=== PATIENT | female | born 1935 | race Caucasian/White ===

== ENCOUNTER 2017-03-23 11:01 | Observation (INO) ==
[2017-03-23] MEDS ORDERED: *HR* Morphine 2 MG/ML SYRINGE SQ ONE (11:26)
[2017-03-23] MEDS ORDERED: Ondansetron ODT 4 MG TAB.RAPDIS SL ONE (11:26)
--- NOTE | 2017-03-23 12:28 | Emergency Department Note ---
Disposition Clinical Impression: Left hip pain Disposition: Still a Patient Condition: Undetermined Extremity Problem HPI - General Chief complaint: ED Extremity Problem,Nontraumatic Stated complaint: Left hip/GROIN PAIN Time Seen by Provider: 03/23/17 11:25 Source: patient, family Mode of arrival: private vehicle Limitations: no limitations Nursing Notes Reviewed: Yes Vital Signs Reviewed: Yes - History of Present Illness Pt Subjective Complaint: joint paint Onset (ago): week(s) Consistency: Worsening Injury Location: left Pain Scale: 10 ("if trying to walk") Quality: stabbing, sharp Improves with: immobilization, rest Worsens with: range of motion, weight bearing, walking Associated symptoms: Reports: denies other symptoms Context: other (Hx of right hip arthritis, s/p THR 10+years ago) - Related Data Previous Rx's Medication Instructions Recorded Sulfamethoxazole/Trimeth DS 1 each PO BID #14 tablet 11/11/16 [Bactrim DS] Allergies Allergy/AdvReac Type Severity Reaction Status Date / Time No Known Allergies Allergy Unverified 07/03/15 10:18 All systems ED: reviewed and negative except as stated. Constitutional: Denies: fever, chills, weakness Gastrointestinal: Denies: abdominal pain, nausea, vomiting Genitourinary: Denies: dysuria, frequency, hematuria Musculoskeletal: Reports: as per HPI, back pain ("Chronic" - no worse than usual ), arthralgia. Denies: neck pain, joint swelling Neurological: Denies: numbness, paresthesias Hematological/Lymphatic: Denies: easy bleeding, easy bruising Past Medical History - Past Medical History Attestation: Yes The following information was validated with the patient. Source: patient Medical history: Reports: arthritis, hyperlipidemia, hypertension, other Surgical history: Reports: hip replacement (right) Psychiatric history: Reports: no psych history - Social History Smoking Status: Never smoker Smokeless Tobacco Status: No Alcohol use: Reports: occasionally Drug use: Reports: none Physical Exam - General Limitations: no limitations General appearance: alert, in no apparent distress - Head Head exam: atraumatic, normocephalic, normal inspection - Eye Eye exam: Present: normal appearance, PERRL. Absent: scleral icterus, conjunctival injection, periorbital swelling - ENT ENT exam: mucous membranes moist - Neck Neck exam: Present: normal inspection - Chest Chest inspection: Present: normal inspection - Respiratory Respiratory exam: Absent: respiratory distress - Cardiovascular Cardiovascular exam: Present: regular rate - Extremities Exam Extremities exam: Present: normal inspection, normal capillary refill. Absent: pedal edema - Expanded Lower Extremity Exam Hip/Pelvis exam: Present: normal inspection, tenderness (left lateral hip and pelvis) Upper leg exam: Absent: tenderness Knee exam: Present: normal inspection, full ROM. Absent: tenderness Lower leg exam: Present: normal inspection. Absent: tenderness Ankle exam: Present: normal inspection, full ROM. Absent: tenderness, swelling Foot/toe exam: Present: normal inspection, full ROM. Absent: tenderness, swelling Neurovascular/Tendon exam: Present: normal fine/light touch. Absent: pulse deficit, motor deficit, sensory deficit, tendon deficit, foot drop Gait: not tested/not observed - Back Exam Back exam: Absent: tenderness - Neurological Exam Neurological exam: Present: alert, oriented X3, CN II-XII intact, normal gait - Psychiatric Psychiatric exam: Present: normal affect, normal mood - Skin Skin exam: Present: warm, dry, intact, normal color Course Course Narrative: Patient presents from home with her son for evaluation of left hip pain. She states that she has had pain in this area for several weeks, but this week it has gotten significantly worse. She has been "up and around more than usual lately." She denies trauma, fever, recent procedures or illnesses. She states that she had bad arthritis in the right hip and had to have THR about a decade ago. She knows that she has some arthritis in the left hip, but has not had severe pain like this before. She points to the left lateral hip and pelvis. The pain radiates around the hip into the groin, but not down the leg. She denies paraesthesias, but has had weakness in the leg. She appears comfortable until she tries to bear weight. Xray ordered. Xray shows no acute abnormality. Patient unable to bear weight without severe pain. Her son is adamant that she have a CT done. He feels that this imaging modality should have been utilized fisrt. This has been ordered. CT is limited because of demineralization. MRI valerio's by rad if patient unable to bear weight. This was discussed with the patient. Her son states that he needs to know what is wrong with his mom - why she can't walk - and he is only going to be here (in [place])for a short period of time. He strongly expresses that he would like for her to have the MRI done now. The was feeling a little better after the morphine, but still reluctant to bear weight. She is uncomfortable in the wheel chair but is unable to get up onto the tall exam table in fast track. Will move the patient to a medical bed for further evaluation and possible further advanced imaging. Case discussed with Dr. Gates. She will see the patient lynnette. She received two other patients at the same time. Vital Signs Temperature 97.9 F 03/23/17 11:10 Pulse Rate 64 03/23/17 11:10 Respiratory Rate 18 03/23/17 11:10 Blood Pressure 128/52 03/23/17 11:10 O2 Sat by Pulse Oximetry 96 03/23/17 11:10 Temperature 97.9 F 03/23/17 11:10 Pulse Rate 64 03/23/17 11:10 Respiratory Rate 18 03/23/17 11:10 Blood Pressure 128/52 03/23/17 11:10 O2 Sat by Pulse Oximetry 96 03/23/17 11:10 Oxygen Delivery Oxygen Delivery Room Air Extremity Problem, Nontraumati - Medical Records Medical records reviewed: Yes I reviewed the patient's medical records. - Radiology Data Radiology results reviewed: Yes I reviewed the patient's radiology results. Hip X-Ray 03/23/17 11:24 IMPRESSION: No acute osseous abnormality. Minimal degenerative changes of the left hip. Given the degree of osteopenia, nondisplaced fractures may be radiographically occult. If pain or concern for fracture persists, consider MR imaging. D/ / 03/23/2017 11:48:46 Olena Zarate MD / Zenobia Michael Interpreting Provider: Olena Zarate MD Hip CT 03/23/17 11:58 IMPRESSION: Within the limitations of the exam, no acute abnormalities are seen. If there is persistent clinical concern or difficulty weight-bearing MRI can be considered. Right hip prosthesis. No evidence for hardware complication. Degenerative changes to the left hip, both SI joints and to the visualized lower lumbar spine. Prior surgical intervention to the lower lumbar spine without evidence for hardware complication. Grade 1 anterolisthesis of L4 on L5 likely relating to the degenerative changes. Colonic diverticulosis without evidence for diverticulitis. D/ / 03/23/2017 12:39:58 Nicholas Choi MD / rissa Interpreting Provider: Nicholas Choi MD Attestation Statement - Attestation Attestation: I have personally performed a face to face evaluation on this patient. I have reviewed and agree with the care plan. History and Exam by me shows: Patient to ED with left hip pain. Patient has chronic back problems. She states she has had increasing pain in her hip and pelvis. She can no longer bear weight on the left leg. Patient was seen by PA and brought back for MRI. On examination the patient has no tenderness over the hip. She allows logrolling. The leg is neurovascularly intact. Plan. Concern this could become from her back. MR hip and lumbar spine. Patient is unable to walk. Will be admitted to medicine. Basic labs pending.
[2017-03-23 14:38] LABS: Basophils % 0.3 %; Eosinophils # 0.1 K/mcL (0.0-0.6); Eosinophils % 1.2 %; Hematocrit 40.8 % (35.3-44.9); Hemoglobin 13.7 g/dL (11.5-15.4); Immature Granulocytes % 0.1 % (0-4); Lymphocytes # 1.8 K/mcL (0.6-4.6); Lymphocytes % 26.3 %; Mean Corpuscular HGB Conc 33.6 g/dL (31.6-35.5); Mean Corpuscular Hemoglobin 32.2 pg (28.0-33.3); Mean Corpuscular Volume 95.8 fL (83.0-100.0); Mean Platelet Volume 11.9 fL (9.4-12.4); Monocytes # 0.6 K/mcL (0.0-1.3); Monocytes % 8.8 %; Neutrophils # 4.3 K/mcL (1.6-8.9); Platelet Count 121 K/mcL (140-400); Red Blood Count 4.26 M/mcL (3.82-4.97); Red Cell Distribution Width 12.3 % (11.5-14.5); Segmented Neutrophils % 63.3 %
[2017-03-23 14:47] LABS: Prothrombin Time 11.1 Seconds (9.4-12.1)
[2017-03-23 14:49] LABS: Calcium 9.1 mg/dL (8.6-10.8); Potassium 4.5 mEq/L (3.5-4.5)
[2017-03-23 14:50] LABS: Activated Partial Thrombo Time 29.4 Seconds (26.0-36.0)
[2017-03-23] MEDS ORDERED: Ondansetron ODT 4 MG TAB.RAPDIS SL PRN (16:16)
[2017-03-23] MEDS ORDERED: Naloxone 0.4 MG/ML INJ IVP PRN (16:16)
[2017-03-23] MEDS ORDERED: *HR* HYDROcodone/Acet 5/325 mg TABLET PO PRN ×2 (16:23→16:45)
--- NOTE | 2017-03-23 16:32 | Internal Med History&Physical ---
<Antonio Garcia - Last Filed: 03/23/17 16:57> Date of Encounter: 03/23/17 Time of Encounter: 15:00 Assessment and Plan (1) Left hip pain Current visit: Yes Status: Acute Acute left hip pain that patient states has been present for awhile but has worsened in the past two days. CT of the left hip today w/o contrast shows no acute abnormalities. If there is persistent clinical concern difficulty weightbearing, MRI can be considered. Right hip prosthesis. No evidence for hardware complication. Degenerative changes to the left hip, both SI joints into the visualized lower lumbar spine. Prior surgical intervention to the lower lumbar spine without evidence of hardware complication. Grade 1 anterolisthesis of L4 on L5 likely relating to degenerative changes. MRI of the left hip and lumbar spine ordered. Will continue pts. Will continue pts. Hydrocodone for moderate pain and add Dilaudid for severe pain. PT/OT consults ordered. Falls/safety precautions. Pt. is at moderate risk for further morbidity d/t current sx and hx of hip/spine pain. Observation. (2) GERD (gastroesophageal reflux disease) Current visit: Yes Status: Chronic Hx of chronic GERD. IVP Zofran Q6 PRN. Continue pts. Prilosec. Qualifiers: Esophagitis presence: esophagitis presence not specified Qualified Code(s) : K21.9 - Gastro-esophageal reflux disease without esophagitis (3) HTN (hypertension) Current visit: Yes Status: Chronic Hx of chronic HTN. Monitor pt. and VS. Continue patient's metoprolol, Imdur, and lisinopril. Qualifiers: Hypertension type: essential hypertension Qualified Code(s): I10 - Essential (primary) hypertension (4) HLD (hyperlipidemia) Current visit: Yes Status: Chronic Hx of chronic hyperlipidemia. Lipid panel in a.m. labs. Continue Lipitor. Qualifiers: Hyperlipidemia type: pure hypercholesterolemia Qualified Code(s): E78.00 - Pure hypercholesterolemia, unspecified; E78.0 - Pure hypercholesterolemia (5) Parkinsons disease Current visit: Yes Status: Chronic Hx of chronic Parkinson's disease. Continue patient's carbidopa/levodopa. (6) Arthritis Current visit: Yes Status: Chronic Hx of chronic arthritis. Hydrocodone for moderate pain and Dilaudid for severe pain. (7) DVT prophylaxis Current visit: Yes Status: Acute Bilateral SCDs on LEs for DVT prophylaxis. Pharmacologic DVT prophylaxis contraindicated due to possible surgical intervention for left hip. Will await MRI results. Internal Medicine - H&P: HPI Chief complaint: Left hip pain Admitted From: Emergency Dept Plans for Post Hospital Care: Home History of present illness: Ms. Lal is a 81 year old female with medical hx of arthritis, GERD, hyperlipidemia, hypertension, and Parkinson's disease presents to ED with chief complaint of pain in her left hip which she states has been occurring for a while but became worse in the past 2 days. She describes the pain as sharp and reports difficulty with ambulation. Patient also states she has chronic back pain. She reports she does not take NSAIDs due to renal function and takes acetaminophen instead. Patient also reports SOB but denies recent illness, fever, chills, nausea, vomiting, chest pain, palpitations, changes in vision, unusual bleeding, headache, abdominal pain, constipation, diarrhea, dizziness, lightheadedness, pre-syncope, or syncope. Past Med Surg Social Fam HX - Past Medical History Source: patient, old records reviewed Medical history: arthritis, GERD, hyperlipidemia, hypertension, other (Parkinson 's disease) Psychiatric history: no psych history - Past Surgical History Surgical History: coronary bypass (CABG) (Triple in 2012), hip replacement ( Right) - Social History Smoking Status: Former smoker Packs per day: 2-3 cigarettes daily - Reports quitting >20 years ago Smokeless Tobacco Status: No Alcohol use: occasionally Drug use: none Current living situation: Home, With Family Activity Level: Independent ambulation Recent Out of Country Travel Within the Last 8 Weeks: No Exposure or Possible Exposure to Illness During Travel: No - Family History Father Age at : 92 Cause of : Pancreatic cancer Hx Family Cancer: Yes (Pancreatic) Hx Family Endocrine Disorder: Yes (DM) Hx Family Musculoskeletal Disorders: Yes (Arthritis) Mother Race: Family Member Ethnicity: Non- Living Status: Age at : 85 Cause of : Hit by car Hx Family Cardiac Disorders: Yes (HTN) Hx Family Endocrine Disorder: Yes (DM) Brother Race: Family Member Ethnicity: Non- Twin of Family Member: Yes, Fraternal Hx Family Cardiac Disorders: Yes (CAD, Quad Bypass) Hx Family Cancer: Yes (Colon) Internal Medicine - H&P: Meds Aspirin Enteric Coated [Aspirin EC] 81 mg PO DAILY 11/21/17 [History] Atorvastatin Calcium [Lipitor] 20 mg PO HS 03/23/17 [History] Carbidopa/Levodopa 25/100 [Sinemet 25/100] 1 each PO TID 03/23/17 [History] Docusate [Colace] 100 mg PO DAILY PRN 03/23/17 [History] HYDROcodone/Acet 5/325 mg [[place] 5-325 mg] 1 tab PO BID PRN 03/23/17 [History] Isosorbide MONOnitrate (24 HR) [Imdur] 60 mg PO DAILY 03/23/17 [History] Lisinopril [Zestril] 5 mg PO DAILY 03/23/17 [History] Metoprolol Succinate 100 mg PO DAILY 03/23/17 [History] Multivitamin [One Daily Essential] 1 each PO DAILY 03/23/17 [History] Omeprazole [PriLOSEC] 20 mg PO DAILY 03/23/17 [History] 3 Allergy/AdvReac Type Severity Reaction Status Date / Time No Known Allergies Allergy Unverified 07/03/15 10:18 All Systems PM: A 10-system review of systems was performed and is negative for pertinent findings except as documented above in the HPI. - Constitutional Constitutional: no chills, no fever(s), no night sweats - EENT Eyes: no change in vision, no discharge, no pain, no photophobia Ears: no ear discharge, no ear pain, no tinnitus Nose, mouth and throat: no dysphagia, no nasal discharge, no neck pain, no sore throat - Breasts Breasts: as per HPI - Cardiovascular Cardiovascular ROS IM: as per HPI, dyspnea, dyspnea on exertion, no chest pain, no diaphoresis, no lightheadedness, no palpitations, no syncope - Respiratory Respiratory: as per HPI, dyspnea, dyspnea on exertion - Gastrointestinal Gastrointestinal: no abdominal pain, no diarrhea, no hematemesis, no hematochezia, no melena, no nausea, no vomiting - Genitourinary Genitourinary: no change in urinary stream, no dysuria, no flank pain, no hematuria Menstruation: as per HPI - Musculoskeletal Musculoskeletal ROS IM: no numbness, no tingling - Integumentary Integumentary IM: no rash, no unusual bruising - Neurological Neurological ROS: no confusion, no convulsions, no focal weakness, no numbness, no tingling, no tremor(s) - Psychiatric Psychiatric: as per HPI - Endocrine Endocrine IM: as per HPI - Hematologic/Lymphatic Hematologic/Lymphatic: no easy bruising - Allergic/Immunologic Allergic/Immunologic: as per HPI - Constitutional Vitals: Temp Pulse Resp BP Pulse Ox 97.7 F 55 18 120/58 94 03/23/17 15:37 03/23/17 15:37 03/23/17 15:37 03/23/17 15:37 03/23/17 15:37 General appearance: Present: cooperative, A&O X 3, pleasant, no acute distress, obese, answers questions appropriately - Head Head exam: Present: atraumatic, normal inspection, normocephalic - Eye Eye exam: Present: PERRL, conjuntiva pink, sclera anicteric Pupils: Present: PERRL - ENT ENT exam: Present: normal exam, normal external ear exam - Neck Neck exam general surgery: Present: normal inspection, supple, trachea midline. Absent: lymphadenopathy - Respiratory Respiratory exam: Present: CTAB. Absent: accessory muscle use, rales, rhonchi, wheezes - Cardiovascular Cardiovascular exam: Present: RRR, +S1, +S2. Absent: diastolic murmur, gallop, rubs, systolic murmur - GI/Abdominal GI/Abdominal exam: Present: normal bowel sounds, soft, no peritoneal signs. Absent: distended, tenderness - Rectal Rectal exam: Present: deferred - Additional comments: exam deferred. - Extremities Exam Extremities exam: Present: normal inspection, warm, radial pulses palpable and symmetrical. Absent: calf tenderness, cyanotic, pedal edema - Back Exam Back exam: Present: normal inspection - Neurological Exam Neurological exam: Present: CN II-XII intact, oriented X3, no focal deficits. Absent: pronater drift, facial droop, speech deficit - Psychiatric Psychiatric exam: Present: normal affect, normal mood - Skin Skin exam: Present: dry, intact Internal Med - H&P Results - Labs CBC & Chem 7: 03/23/17 14:31 03/23/17 14:31 - Diagnostic Studies Other Images Additional comments: Impressions Hip X-Ray 03/23/17 11:24 IMPRESSION: No acute osseous abnormality. Minimal degenerative changes of the left hip. Given the degree of osteopenia, nondisplaced fractures may be radiographically occult. If pain or concern for fracture persists, consider MR imaging. D/ / 03/23/2017 11:48:46 Olena Zarate MD / Zenobia Michael Interpreting Provider: Olena Zarate MD Hip CT 03/23/17 11:58 IMPRESSION: Within the limitations of the exam, no acute abnormalities are seen. If there is persistent clinical concern or difficulty weight-bearing MRI can be considered. Right hip prosthesis. No evidence for hardware complication. Degenerative changes to the left hip, both SI joints and to the visualized lower lumbar spine. Prior surgical intervention to the lower lumbar spine without evidence for hardware complication. Grade 1 anterolisthesis of L4 on L5 likely relating to the degenerative changes. Colonic diverticulosis without evidence for diverticulitis. D/ / 03/23/2017 12:39:58 Nicholas Choi MD / rissa Interpreting Provider: Nicholas Choi MD <Desmond Maynard P - Last Filed: 03/23/17 18:32> Date of Encounter: 03/23/17 Internal Medicine - H&P: HPI History of present illness: Ms. Lal is a 81 year old female All Systems PM: A 10-system review of systems was performed and is negative for pertinent findings except as documented above in the HPI. - Constitutional Vitals: Temp Pulse Resp BP Pulse Ox 97.7 F 55 18 120/58 94 03/23/17 15:37 03/23/17 15:37 03/23/17 15:37 03/23/17 15:37 03/23/17 15:37 Internal Med - H&P Results - Labs CBC & Chem 7: 03/23/17 14:31 03/23/17 14:31 - Attending Attestation I examined this patient and my medical decision-making was reviewed with the Resident Physician/CIRCUIT TESTER. I agree with the documented findings, disposition and treatment plan as described except to the extent set forth below. Patient seen and examined. Chart reviewed. 81/female Came in with the hip pain. CT scan is negative for any abnormality Patient has a worse pain of her life. Oral make medication apparently does not work in the emergency room. Intravenous pain medication has a better control. Plan: We will get MRI as scheduled. We will continue pain medication intravenously. We will call appropriate specialty depending on MRI results.
[2017-03-23] MEDS ORDERED: *HR* HYDROmorphone (PF) 1 MG/ML SYRINGE IVP PRN (16:43)
[2017-03-23] MEDS: Carbidopa/Levodopa 25/100 TABLET PO SCH (20:42)
[2017-03-24 04:35] LABS: Basophils % 0.5 %; Eosinophils # 0.1 K/mcL (0.0-0.6); Eosinophils % 2.1 %; Hematocrit 39.1 % (35.3-44.9); Hemoglobin 13.3 g/dL (11.5-15.4); Immature Granulocytes % 0.3 % (0-4); Lymphocytes # 2.1 K/mcL (0.6-4.6); Lymphocytes % 31.9 %; Mean Corpuscular Hemoglobin 32.7 pg (28.0-33.3); Mean Corpuscular Volume 96.1 fL (83.0-100.0); Mean Platelet Volume 11.9 fL (9.4-12.4); Monocytes # 0.7 K/mcL (0.0-1.3); Monocytes % 10.1 %; Neutrophils # 3.7 K/mcL (1.6-8.9); Platelet Count 116 K/mcL (140-400); Red Blood Count 4.07 M/mcL (3.82-4.97); Red Cell Distribution Width 12.4 % (11.5-14.5); Segmented Neutrophils % 55.1 %
[2017-03-24 04:49] LABS: Alanine Aminotransferase 9 Units/L (0-55); Albumin 3.1 g/dL (3.5-5.0); Albumin/Globulin Ratio 0.9 (1.1-2.2); Alkaline Phosphatase 72 Units/L (38-126); Aspartate Amino Transferase 16 Units/L (5-34); BUN/Creatinine Ratio 21 (6-26); Bilirubin,Total 0.6 mg/dL (0.2-1.2); Blood Urea Nitrogen 22 mg/dL (7-20); Calcium 8.8 mg/dL (8.6-10.8); Carbon Dioxide 25 mEq/L (19-29); Chloride 107 mEq/L (98-109); Chol/HDL Ratio 4.5 (0-4.9); Cholesterol 113 mg/dL (< 200); Globulin 3.3 g/dL (2.4-3.5); Glucose 104 mg/dL (70-99); HDL Cholesterol 25 mg/dL (40-59); LDL Cholesterol,Calculated 51 mg/dL (0-99); Osmolality,Calculated 292 (280-300); Potassium 4.3 mEq/L (3.5-4.5); Sodium 139 mEq/L (136-145); Total Protein 6.4 g/dL (6.0-8.3); Triglycerides 183 mg/dL (< 150); eGFR For African Americans > 60 (> 60); eGFR For Non-African Americans 51 (> 60)
[2017-03-24 04:53] LABS: Hemoglobin A1C 5.1 %
[2017-03-24] MEDS: Carbidopa/Levodopa 25/100 TABLET PO SCH ×2 (08:46→15:54)
[2017-03-24] MEDS ORDERED: Aspirin Enteric Coated 81 MG Tablet PO SCH (09:00)
[2017-03-24] MEDS ORDERED: Metoprolol XL (24 HR) Succ 50 MG TAB.ER.24H PO SCH (09:00)
[2017-03-24] MEDS ORDERED: Isosorbide MONOnitrate (24 HR) 60 MG TAB.ER.24H PO SCH (09:00)
[2017-03-24] MEDS ORDERED: Multivit/Ca/Min/Fe/FA 1 TAB TABLET PO SCH (09:00)
[2017-03-24 15:42] VITALS: BP 124/64
[2017-03-24] MEDS ORDERED: Acetaminophen 325 MG TABLET PO PRN (15:59)
--- NOTE | 2017-03-24 16:07 | Discharge Summary ---
Date of Encounter: 03/24/17 Time of Encounter: 09:45 - Discharge Diagnosis (1) Left hip pain Priority: Primary Status: Acute Comments: Acute left hip pain that patient states has been present for 2 years, but has worsened in the past two days. She denies change in routine, activity, or known injury. CT of the left hip today w/o contrast shows no acute abnormalities, right hip prosthesis is noted. Degenerative changes to left hip and both SI joints and to the visualized lower lumbar spine. Also noted was prior surgical intervention lower lumbar spine. Left hip x-ray was negative for any acute osseous abnormality, minimal degenerative changes were noted. Patient had an MRI of left hip without contrast. There is no acute osseous abnormality. Moderate left gluteal insertional tendinitis partial-thickness tearing. There is edema within the left gluteal compatible with reactive edema. There is mild left hip degenerative changes and a small left hip reactive effusion. Also noted is mild bilateral SI joint degenerative changes and colonic diverticulosis without diverticulitis. Patient was evaluated by physical therapy, as well as occupational therapy. They recommended patient stays on the first level of her home until she is safe with stair ambulation. They recommended 10 visits of PT with home health. Patient reports that when she walks with her walker, she does not have pain. She reports that she really has 2 walkers at home. Patient will need to follow-up with orthopedics outpatient after discharge. Pt states that she does not want to stay to see ortho for disc protrusions or for GM tear. She states that she wants to go home for Thanksgiving and is declining to stay. (2) GERD (gastroesophageal reflux disease) Priority: Secondary Status: Chronic Comments: Patient with history of GERD. Continue home medications. Qualifiers: Esophagitis presence: esophagitis presence not specified Qualified Code(s) : K21.9 - Gastro-esophageal reflux disease without esophagitis (3) HTN (hypertension) Priority: Secondary Status: Chronic Comments: Blood pressure has been well controlled. Continue home medications. Qualifiers: Hypertension type: essential hypertension Qualified Code(s): I10 - Essential (primary) hypertension (4) HLD (hyperlipidemia) Priority: Secondary Status: Chronic Comments: Chronic. Continue statin home dose. Qualifiers: Hyperlipidemia type: pure hypercholesterolemia Qualified Code(s): E78.00 - Pure hypercholesterolemia, unspecified; E78.0 - Pure hypercholesterolemia (5) Parkinsons disease Priority: Secondary Status: Chronic Comments: Chronic. Continue Sinemet at home. (6) DVT prophylaxis Priority: Secondary Status: Acute Comments: Patient has been ambulatory. - Discharge Medications Home Medications: Aspirin Enteric Coated [Aspirin EC] 81 mg PO DAILY 03/23/17 [History] Atorvastatin Calcium [Lipitor] 20 mg PO HS 03/23/17 [History] Carbidopa/Levodopa 25/100 [Sinemet 25/100] 1 each PO TID 03/23/17 [History] Docusate [Colace] 100 mg PO DAILY PRN 03/23/17 [History] HYDROcodone/Acet 5/325 mg [[place] 5-325 mg] 1 tab PO BID PRN 03/23/17 [History] Isosorbide MONOnitrate (24 HR) [Imdur] 60 mg PO DAILY 03/23/17 [History] Lisinopril [Zestril] 5 mg PO DAILY 03/23/17 [History] Metoprolol Succinate 100 mg PO DAILY 03/23/17 [History] Multivitamin [One Daily Essential] 1 each PO DAILY 03/23/17 [History] Omeprazole [PriLOSEC] 20 mg PO DAILY 03/23/17 [History] Allergies/Adverse Reactions: 3 Allergy/AdvReac Type Severity Reaction Status Date / Time No Known Allergies Allergy Unverified 07/03/15 10:18 Date of admission: 03/23/17 14:35 Primary care physician: Javier Ulloa MD Consults: 03/23/17 16:19 Consult to Occupational Therapy [CONS] Routine Comment: Evaluate, develop and implement POC Reason for Consult: Patient has left hip pain and hx of right hip replacement. Also chronic back pain. Please assess patient for strength, stability, safety, ambulation, and possible assistive needs for post-discharge planning. Consult to Metal Grinder [CONS] Routine Reason for SW Consult: Please assess patient for possible home needs for post -discharge planning. 03/23/17 16:20 Consult to Physical Therapy [CONS] Routine Comment: Evaluate, develop and implement POC Reason for Consult: Patient has left hip pain and hx of right hip replacement. Also chronic back pain. Please assess patient for strength, stability, safety, ambulation, and possible assistive needs for post-discharge planning. Discharging clinician: Rae Painting Anticipated date of discharge: 03/24/17 - Patient Status Disposition: Home Health Service Condition: Good Functional capacity at discharge: uses cane/walker Overall status at discharge: patient is back to baseline - Discharge Instructions Follow Up With: Javier Ulloa MD [Primary Care Provider] - 04/08/17 8:30 am Additional Instructions: Please follow up with your PCP in the next 7-10 days for a recheck. Please stay on the 1st floor of your home until you are more stable to use the stairs. Take pain medication as directed and you may apply ice and heat to hip as needed. Use lidoderm patches as directed. REturn to the ER if you have any other problems or concerns or if your symptoms return or worsen. Resume your normal activities as tolerated and resume your diet as tolerated. Take your home medications as you normally would. - Diet and Activity Activity: as per physical therapy, increase activity as tolerated Diet: advance to your usual diet Interval History: Please see assessment and plan for hospital course. Hospital course: Ms. Lal is a 81 year old female - Time Spent with Patient Total time spent providing and/or coordinating discharge services: - Constitutional Vitals: Temp Pulse Resp BP Pulse Ox 98.0 F 60 16 124/64 94 03/24/17 15:42 03/24/17 15:42 03/24/17 15:42 03/24/17 15:42 03/24/17 15:42 General appearance: Present: cooperative, A&O X 3, pleasant, no acute distress, obese, answers questions appropriately - Head Head exam: Present: atraumatic, normal inspection, normocephalic - Eye Eye exam: Present: normal appearance, conjuntiva pink, sclera anicteric - Neck Neck exam general surgery: Present: supple, trachea midline. Absent: lymphadenopathy, tenderness - Respiratory Respiratory exam: Present: decreased breath sounds, CTAB. Absent: accessory muscle use, rales, respiratory distress, rhonchi, wheezes - Cardiovascular Cardiovascular exam: Present: RRR, +S1, +S2. Absent: diastolic murmur, gallop, rubs, systolic murmur - GI/Abdominal GI/Abdominal exam: Present: normal bowel sounds, soft, no peritoneal signs. Absent: distended, hepatomegaly, tenderness - Extremities Exam Extremities exam: Present: normal inspection, warm, radial pulses palpable and symmetrical. Absent: calf tenderness, cyanotic, pedal edema, tenderness - Neurological Exam Neurological exam: Present: alert, oriented X3, no focal deficits. Absent: altered, motor sensory deficit, normal gait, facial droop, speech deficit - Skin Skin exam: Present: dry, intact, normal color, warm. Absent: rash
--- NOTE | 2017-03-24 16:32 | Physician Discharge Referral ---
<Rae Painting - Last Filed: 03/24/17 16:31> Home Health/Hosp Referral Info Provider in Charge Post Discharge: PCP - Diagnosis (1) Left hip pain Priority: Primary Status: Acute (2) GERD (gastroesophageal reflux disease) Priority: Secondary Status: Chronic (3) HTN (hypertension) Priority: Secondary Status: Chronic (4) HLD (hyperlipidemia) Priority: Secondary Status: Chronic (5) Parkinsons disease Priority: Secondary Status: Chronic (6) DVT prophylaxis Priority: Secondary Status: Acute - Respiratory Orders Smoking Cessation: Smoking cessation has been advised. For more information, call the [place] Tobacco Quit Line at 0-972-UWWS-NOW. - Diet/Nutrition Diet/Nutrition Orders: Regular - Activity Activity Orders: Up ad love, Walker - Services Needed Following services are medically necessary services: Home Health Aide, Physical Therapy, Occupational Therapy - Transfer Medications Prescriptions: Lidocaine Patch [Lidoderm 5% patch] 1 each TP DAILY #20 adh..patch Home Medications: Aspirin Enteric Coated [Aspirin EC] 81 mg PO DAILY 03/23/17 [History] Atorvastatin Calcium [Lipitor] 20 mg PO HS 03/23/17 [History] Carbidopa/Levodopa 25/100 [Sinemet 25/100] 1 each PO TID 03/23/17 [History] Docusate [Colace] 100 mg PO DAILY PRN 03/23/17 [History] HYDROcodone/Acet 5/325 mg [[place] 5-325 mg] 1 tab PO BID PRN 03/23/17 [History] Isosorbide MONOnitrate (24 HR) [Imdur] 60 mg PO DAILY 03/23/17 [History] Lisinopril [Zestril] 5 mg PO DAILY 03/23/17 [History] Metoprolol Succinate 100 mg PO DAILY 03/23/17 [History] Multivitamin [One Daily Essential] 1 each PO DAILY 03/23/17 [History] Omeprazole [PriLOSEC] 20 mg PO DAILY 03/23/17 [History] Lidocaine Patch [Lidoderm 5% patch] 1 each TP DAILY #20 adh..patch 03/24/17 [Rx] Allergies/Adverse Reactions: 3 Allergy/AdvReac Type Severity Reaction Status Date / Time No Known Allergies Allergy Unverified 07/03/15 10:18 Certification: Further, I certify that my clinical findings support that this patient is homebound (i.e. absences from home require considerable and taxing effort and are for medical reasons or adventist services or infrequently or short duration when for other reasons) because: Homebound Reason: Patient requires assistance of a person or device to safely leave home Attestation: My signature below is to certify that this patient is under my care and that I, or nurse practitioner, or a physician's assistant merchandiser working with me, has a face-to -face encounter with this patient. <Desmond Maynard P - Last Filed: 03/24/17 17:21> - Respiratory Orders Smoking Cessation: Smoking cessation has been advised. For more information, call the [place] Tobacco Quit Line at 7-205-MKRANOW. Certification: Further, I certify that my clinical findings support that this patient is homebound (i.e. absences from home require considerable and taxing effort and are for medical reasons or adventist services or infrequently or short duration when for other reasons) because: Attestation: My signature below is to certify that this patient is under my care and that I, or nurse practitioner, or a physician's assistant merchandiser working with me, has a face-to -face encounter with this patient.
[2017-03-24] MEDS ORDERED: *HR* Heparin 5,000 UNIT/ML VIAL SQ SCH (22:00)
== END 2017-03-24 17:33 | disposition home health service (06) ==
LOC: EMEROO 11:01 → 3BNU 11:01
PROVIDERS: ADMIT Internal Medicine; ATTEND Registered Nurse

== ENCOUNTER 2019-06-02 22:16 | Inpatient (IN) ==
[2019-06-02 23:00] LABS: Hematocrit 42.7 % (35.3-44.9); Hemoglobin 14.6 g/dL (11.5-15.4); Mean Corpuscular HGB Conc 34.2 g/dL (31.6-35.5); Mean Corpuscular Hemoglobin 32.4 pg (28.0-33.3); Mean Corpuscular Volume 94.9 fL (83.0-100.0); Platelet Count 125 K/mcL (140-400); Red Cell Distribution Width 12.6 % (11.5-14.5); White Blood Count 7.8 K/mcL (4.3-11.1)
[2019-06-02 23:02] LABS: Bilirubin,Urine Negative (Negative); Blood,Urine Trace (Negative); Clarity,Urine Cloudy (Clear); Color,Urine Yellow (Yellow); Glucose,Urine (UA) Normal (Normal); Ketones,Urine Negative (Negative); Leukocyte Esterase,Urine Large (Negative); Nitrite,Urine Negative (Negative); PH,Urine 6.5 pH Units (5.0-8.0); Protein,Urine Negative (Neg-Trace); Specific Gravity,Urine 1.011 (1.010-1.025); Urobilinogen,Urine Normal (Normal)
[2019-06-02 23:04] LABS: Activated Partial Thrombo Time 31.2 Seconds (26.0-36.0)
[2019-06-02 23:05] LABS: Bacteria,Urine None Seen per hpf (None-Few); Hyaline Casts,Urine None Seen per lpf (None-Few); Squamous Epithelial Cell,Urine Moderate per lpf (None-Few); WBC,Urine TNTC per hpf (0-3)
[2019-06-02] MEDS ORDERED: Isovue-370 500 ML BOTTLE IVP ONE (23:17)
[2019-06-02 23:20] LABS: Alanine Aminotransferase 14 Units/L (7-52); Albumin/Globulin Ratio 1.5 (1.1-2.2); Alkaline Phosphatase 72 Units/L (34-104); Aspartate Amino Transferase 23 Units/L (13-39); BUN/Creatinine Ratio 17 (6-26); Bilirubin,Total 0.3 mg/dL (0.3-1.0); Blood Urea Nitrogen 21 mg/dL (8-23); Calcium 9.3 mg/dL (8.6-10.3); Carbon Dioxide 24 mEq/L (23-29); Chloride 106 mEq/L (98-107); Globulin 2.6 g/dL (2.4-3.5); Glucose 93 mg/dL (70-105); Osmolality,Calculated 289 (280-300); Potassium 4.4 mEq/L (3.5-5.1); Sodium 138 mEq/L (136-145); Total Protein 6.6 g/dL (6.4-8.9); Troponin I < 0.03 ng/mL (< 0.04); eGFR For African Americans 49 (> 60); eGFR For Non-African Americans 41 (> 60)
[2019-06-02] MEDS ORDERED: *HR* Heparin 5,000 UNIT/ML VIAL IVP ONE (23:46)
[2019-06-02] MEDS ORDERED: *HR* Heparin 5,000 UNIT/ML VIAL IVP PRN ×2 (23:46)
[2019-06-03] MEDS: Heparin 25,000 UNIT/250 ML D5W 25,000 UNIT/250 ML IV.SOLN IVC SCH (00:25)
[2019-06-03] MEDS ORDERED: Naloxone 0.4 MG/ML INJ IVP PRN (01:34)
[2019-06-03] MEDS ORDERED: 0.9 % Sodium Chloride 1,000 ML IVC SCH (01:45)
[2019-06-03] MEDS ORDERED: *HR* Labetalol 20 MG/4 ML SYRINGE IVP ONE (02:35)
[2019-06-03 03:39] LABS: Basophils % 0.4 %; Eosinophils # 0.2 K/mcL (0.0-0.6); Eosinophils % 2.3 %; Hematocrit 48.8 % (35.3-44.9); Hemoglobin 16.1 g/dL (11.5-15.4); Immature Granulocytes % 0.1 % (0-4); Lymphocytes # 2.7 K/mcL (0.6-4.6); Lymphocytes % 34.3 %; Mean Corpuscular Hemoglobin 32.4 pg (28.0-33.3); Mean Corpuscular Volume 98.2 fL (83.0-100.0); Mean Platelet Volume 12.5 fL (9.4-12.4); Monocytes # 0.7 K/mcL (0.0-1.3); Monocytes % 8.3 %; Neutrophils # 4.3 K/mcL (1.6-8.9); Platelet Count 139 K/mcL (140-400); Red Blood Count 4.97 M/mcL (3.82-4.97); Red Cell Distribution Width 12.6 % (11.5-14.5); Segmented Neutrophils % 54.6 %; White Blood Count 7.9 K/mcL (4.3-11.1)
[2019-06-03 04:03] LABS: Calcium 9.8 mg/dL (8.6-10.3); Potassium 4.2 mEq/L (3.5-5.1)
[2019-06-03] MEDS: cefTRIAXone 1,000 MG in 0.9 % Sodium Chloride Mini Bag 100 ML IVPB SCH (08:36)
[2019-06-03] MEDS: Metoprolol XL (24 HR) Succ 50 MG TAB.ER.24H PO SCH (08:36)
[2019-06-03 09:42] LABS: Calcium 9.1 mg/dL (8.6-10.3); Potassium 3.9 mEq/L (3.5-5.1)
[2019-06-03] MEDS: Carbidopa/Levodopa 25/100 TABLET PO SCH ×3 (10:59→22:16)
[2019-06-03] MEDS: Acetaminophen 325 MG TABLET PO PRN (22:15)
[2019-06-04] MEDS: Heparin 25,000 UNIT/250 ML D5W 25,000 UNIT/250 ML IV.SOLN IVC SCH (02:11)
[2019-06-04 05:22] LABS: Basophils % 0.6 %; Eosinophils # 0.2 K/mcL (0.0-0.6); Eosinophils % 2.8 %; Hematocrit 43.7 % (35.3-44.9); Immature Granulocytes % 0.3 % (0-4); Lymphocytes # 2.4 K/mcL (0.6-4.6); Lymphocytes % 36.2 %; Mean Corpuscular HGB Conc 34.3 g/dL (31.6-35.5); Mean Corpuscular Hemoglobin 32.3 pg (28.0-33.3); Mean Corpuscular Volume 94.2 fL (83.0-100.0); Mean Platelet Volume 12.8 fL (9.4-12.4); Monocytes # 0.6 K/mcL (0.0-1.3); Monocytes % 8.7 %; Neutrophils # 3.4 K/mcL (1.6-8.9); Platelet Count 121 K/mcL (140-400); Red Blood Count 4.64 M/mcL (3.82-4.97); Red Cell Distribution Width 12.9 % (11.5-14.5); Segmented Neutrophils % 51.4 %; White Blood Count 6.7 K/mcL (4.3-11.1)
[2019-06-04 05:45] LABS: Calcium 9.2 mg/dL (8.6-10.3); Magnesium 1.9 mg/dL (1.6-2.6); Potassium 4.2 mEq/L (3.5-5.1)
[2019-06-04] MEDS: Carbidopa/Levodopa 25/100 TABLET PO SCH ×4 (08:59→22:25)
[2019-06-04] MEDS: Metoprolol XL (24 HR) Succ 50 MG TAB.ER.24H PO SCH (08:59)
[2019-06-04] MEDS: Isosorbide MONOnitrate (24 HR) 60 MG TAB.ER.24H PO SCH (08:59)
[2019-06-04] MEDS: Aspirin Enteric Coated 81 MG Tablet PO SCH (08:59)
[2019-06-04] MEDS: cefTRIAXone 1,000 MG in 0.9 % Sodium Chloride Mini Bag 100 ML IVPB SCH (09:00)
[2019-06-04] MEDS: *HR* Warfarin 2.5 MG TABLET PO ONE (16:59)
[2019-06-04] MEDS ORDERED: Warfarin perPT PO PRN (18:00)
[2019-06-04] MEDS: Acetaminophen 325 MG TABLET PO PRN (22:31)
[2019-06-05] MEDS: Heparin 25,000 UNIT/250 ML D5W 25,000 UNIT/250 ML IV.SOLN IVC SCH (05:56)
[2019-06-05 06:24] LABS: Prothrombin Time 11.6 Seconds (9.4-12.1)
[2019-06-05 06:36] LABS: Calcium 9.6 mg/dL (8.6-10.3); Potassium 4.3 mEq/L (3.5-5.1)
[2019-06-05] MEDS: Metoprolol XL (24 HR) Succ 50 MG TAB.ER.24H PO SCH (10:57)
[2019-06-05] MEDS: Carbidopa/Levodopa 25/100 TABLET PO SCH ×4 (10:57→21:54)
[2019-06-05] MEDS: Aspirin Enteric Coated 81 MG Tablet PO SCH (10:57)
[2019-06-05] MEDS: Acetaminophen 325 MG TABLET PO PRN (10:57)
[2019-06-05] MEDS: cefTRIAXone 1,000 MG in 0.9 % Sodium Chloride Mini Bag 100 ML IVPB SCH (10:57)
[2019-06-05] MEDS: Isosorbide MONOnitrate (24 HR) 60 MG TAB.ER.24H PO SCH (10:57)
[2019-06-05] MEDS ORDERED: *HR* Warfarin 2.5 MG TABLET PO ONE (18:00)
[2019-06-05] MEDS: *HR* Heparin 5,000 UNIT/ML VIAL SQ SCH (18:21)
[2019-06-05] MEDS: *HR* Warfarin 2.5 MG TABLET PO ONE (20:24)
[2019-06-06 02:25] LABS: Prothrombin Time 11.5 Seconds (9.4-12.1)
[2019-06-06 02:29] LABS: Basophils % 0.4 %; Eosinophils # 0.2 K/mcL (0.0-0.6); Eosinophils % 2.4 %; Hemoglobin 14.6 g/dL (11.5-15.4); Immature Granulocytes % 0.1 % (0-4); Lymphocytes # 1.9 K/mcL (0.6-4.6); Lymphocytes % 28.1 %; Mean Corpuscular HGB Conc 34.8 g/dL (31.6-35.5); Mean Corpuscular Hemoglobin 32.9 pg (28.0-33.3); Mean Corpuscular Volume 94.6 fL (83.0-100.0); Mean Platelet Volume 12.5 fL (9.4-12.4); Monocytes # 0.7 K/mcL (0.0-1.3); Monocytes % 10.1 %; Platelet Count 123 K/mcL (140-400); Red Blood Count 4.44 M/mcL (3.82-4.97); Red Cell Distribution Width 13.1 % (11.5-14.5); Segmented Neutrophils % 58.9 %; White Blood Count 6.8 K/mcL (4.3-11.1)
[2019-06-06 02:48] LABS: BUN/Creatinine Ratio 24 (6-26); Blood Urea Nitrogen 25 mg/dL (8-23); Calcium 9.2 mg/dL (8.6-10.3); Carbon Dioxide 23 mEq/L (23-29); Chloride 110 mEq/L (98-107); Glucose 119 mg/dL (70-105); Osmolality,Calculated 296 (280-300); Potassium 4.2 mEq/L (3.5-5.1); Sodium 140 mEq/L (136-145); eGFR For African Americans > 60 (> 60); eGFR For Non-African Americans 50 (> 60)
[2019-06-06] MEDS: *HR* Heparin 5,000 UNIT/ML VIAL SQ SCH ×2 (05:20→16:11)
[2019-06-06] MEDS: Isosorbide MONOnitrate (24 HR) 60 MG TAB.ER.24H PO SCH (08:16)
[2019-06-06] MEDS: Carbidopa/Levodopa 25/100 TABLET PO SCH ×4 (08:16→22:00)
[2019-06-06] MEDS: Aspirin Enteric Coated 81 MG Tablet PO SCH (08:16)
[2019-06-06] MEDS: Metoprolol XL (24 HR) Succ 50 MG TAB.ER.24H PO SCH (08:17)
[2019-06-06] MEDS: Acetaminophen 325 MG TABLET PO PRN (13:24)
[2019-06-07 00:54] LABS: Prothrombin Time 11.7 Seconds (9.4-12.1)
[2019-06-07] MEDS: Acetaminophen 325 MG TABLET PO PRN ×2 (01:02→15:55)
[2019-06-07] MEDS: *HR* Heparin 5,000 UNIT/ML VIAL SQ SCH (05:28)
[2019-06-07] MEDS: Isosorbide MONOnitrate (24 HR) 60 MG TAB.ER.24H PO SCH (08:02)
[2019-06-07] MEDS: Carbidopa/Levodopa 25/100 TABLET PO SCH ×2 (08:02→12:56)
[2019-06-07] MEDS: Metoprolol XL (24 HR) Succ 50 MG TAB.ER.24H PO SCH (08:03)
[2019-06-07] MEDS: Aspirin Enteric Coated 81 MG Tablet PO SCH (08:03)
[2019-06-07 08:16] VITALS: BP 145/73
== END 2019-06-07 16:27 | DRG 690 ==
LOC: EMEROOARM 22:16 → 2NENU 22:16 → SUATTDRO 06-03 01:28 → 2NENU 06-03 01:48 → SUATTDRO 06-04 12:15
PROVIDERS: ADMIT Student in an Organized Health Care Education/Training Program; ATTEND Internal Medicine

== ENCOUNTER 2021-03-11 14:05 | Inpatient (IN) ==
[2021-03-11] MEDS ORDERED: 0.9 % Sodium Chloride 1,000 ML IVC ONE (19:05)
[2021-03-11] MEDS ORDERED: Acetaminophen 325 MG TABLET PO ONE (19:05)
[2021-03-11 20:19] LABS: Basophils % 0.3 %; Eosinophils # 0.1 K/mcL (0.0-0.6); Eosinophils % 0.6 %; Hematocrit 40.7 % (35.3-44.9); Hemoglobin 13.6 g/dL (11.5-15.4); Immature Granulocytes % 0.2 % (0-4); Lymphocytes # 1.1 K/mcL (0.6-4.6); Mean Corpuscular HGB Conc 33.4 g/dL (31.6-35.5); Mean Corpuscular Hemoglobin 31.9 pg (28.0-33.3); Mean Corpuscular Volume 95.5 fL (83.0-100.0); Mean Platelet Volume 12.4 fL (9.4-12.4); Neutrophils # 7.3 K/mcL (1.6-8.9); Platelet Count 114 K/mcL (140-400); Red Blood Count 4.26 M/mcL (3.82-4.97); Red Cell Distribution Width 12.5 % (11.5-14.5); Segmented Neutrophils % 76.9 %; White Blood Count 9.5 K/mcL (4.3-11.1)
[2021-03-11 20:37] LABS: Alanine Aminotransferase 3 Units/L (7-52); Albumin 3.7 g/dL (3.5-5.7); Albumin/Globulin Ratio 1.1 (1.1-2.2); Alkaline Phosphatase 73 Units/L (34-104); Aspartate Amino Transferase 34 Units/L (13-39); BUN/Creatinine Ratio 21 (6-26); Bilirubin,Total 0.7 mg/dL (0.3-1.0); Blood Urea Nitrogen 25 mg/dL (8-23); Carbon Dioxide 26 mEq/L (23-29); Chloride 102 mEq/L (98-107); Creatine Kinase 750 Units/L (30-223); Ethanol < 10 mg/dL (Less than 10); Globulin 3.4 g/dL (2.4-3.5); Glucose 102 mg/dL (70-105); Osmolality,Calculated 289 (280-300); Potassium 3.9 mEq/L (3.5-5.1); Sodium 137 mEq/L (136-145); Total Protein 7.1 g/dL (6.4-8.9); eGFR For African Americans 52 (> 60); eGFR For Non-African Americans 43 (> 60)
[2021-03-11 20:46] LABS: Influenza A PCR Negative (Negative); Influenza B PCR Negative (Negative); Resp. Syncytial Virus PCR Negative (Negative)
[2021-03-11 20:48] LABS: SARS-CoV-2 by PCR (In House) Negative (Negative)
[2021-03-11 22:28] LABS: Bilirubin,Urine Negative (Negative); Blood,Urine Small (Negative); Clarity,Urine Slightly Cloudy (Clear); Color,Urine Yellow (Yellow); Glucose,Urine (UA) Normal (Normal); Ketones,Urine Negative (Negative); Leukocyte Esterase,Urine Small (Negative); Nitrite,Urine Positive (Negative); Protein,Urine 100 mg/dL (Neg-Trace); Urobilinogen,Urine Normal (Normal)
[2021-03-11 22:36] LABS: Bacteria,Urine Few per hpf (None-Few); RBC,Urine 0-3 per hpf (0-3); Squamous Epithelial Cell,Urine Few per hpf (None-Few); WBC,Urine 50-100 per hpf (0-3)
[2021-03-12] MEDS ORDERED: Acetaminophen 325 MG TABLET PO PRN (01:36)
[2021-03-12] MEDS ORDERED: Naloxone 0.4 MG/ML INJ IVP PRN (01:36)
[2021-03-12] MEDS ORDERED: Melatonin 3 MG TABLET PO PRN (01:36)
[2021-03-12] MEDS ORDERED: *HR* Promethazine 25 MG/ML VIAL IM PRN (01:36)
[2021-03-12] MEDS: *HR* HYDROcodone/Acet 5/325 mg TABLET PO PRN ×2 (02:13→08:15)
[2021-03-12 02:41] LABS: Hematocrit 41.8 % (35.3-44.9); Hemoglobin 13.9 g/dL (11.5-15.4); Mean Corpuscular HGB Conc 33.3 g/dL (31.6-35.5); Mean Corpuscular Hemoglobin 31.7 pg (28.0-33.3); Mean Corpuscular Volume 95.2 fL (83.0-100.0); Mean Platelet Volume 12.2 fL (9.4-12.4); Platelet Count 111 K/mcL (140-400); Red Blood Count 4.39 M/mcL (3.82-4.97); Red Cell Distribution Width 12.3 % (11.5-14.5); White Blood Count 7.3 K/mcL (4.3-11.1)
[2021-03-12 02:50] LABS: BUN/Creatinine Ratio 21 (6-26); Blood Urea Nitrogen 21 mg/dL (8-23); Calcium 8.7 mg/dL (8.6-10.3); Carbon Dioxide 24 mEq/L (23-29); Chloride 105 mEq/L (98-107); Glucose 105 mg/dL (70-105); Magnesium 1.9 mg/dL (1.6-2.6); Osmolality,Calculated 287 (280-300); Phosphorous 2.8 mg/dL (2.7-4.5); Sodium 137 mEq/L (136-145); eGFR For African Americans > 60 (> 60); eGFR For Non-African Americans 52 (> 60)
[2021-03-12] MEDS: Carbidopa/Levodopa 25/100 TABLET PO SCH ×5 (07:33→21:04)
[2021-03-12] MEDS ORDERED: *HR* Metoprolol 5 MG/5 ML VIAL IVP PRN (08:01)
[2021-03-12] MEDS: cefTRIAXone 1,000 MG in 0.9 % Sodium Chloride Mini Bag 100 ML IVPB SCH (08:15)
[2021-03-13 02:32] LABS: Basophils % 0.3 %; Eosinophils # 0.1 K/mcL (0.0-0.6); Eosinophils % 1.8 %; Hematocrit 40.2 % (35.3-44.9); Hemoglobin 13.6 g/dL (11.5-15.4); Immature Granulocytes % 0.3 % (0-4); Lymphocytes # 1.1 K/mcL (0.6-4.6); Lymphocytes % 16.1 %; Mean Corpuscular HGB Conc 33.8 g/dL (31.6-35.5); Mean Corpuscular Hemoglobin 32.3 pg (28.0-33.3); Mean Corpuscular Volume 95.5 fL (83.0-100.0); Mean Platelet Volume 12.2 fL (9.4-12.4); Monocytes % 14.7 %; Neutrophils # 4.5 K/mcL (1.6-8.9); Platelet Count 116 K/mcL (140-400); Red Blood Count 4.21 M/mcL (3.82-4.97); Red Cell Distribution Width 12.3 % (11.5-14.5); Segmented Neutrophils % 66.8 %; White Blood Count 6.8 K/mcL (4.3-11.1)
[2021-03-13 02:43] LABS: BUN/Creatinine Ratio 21 (6-26); Blood Urea Nitrogen 21 mg/dL (8-23); Calcium 8.6 mg/dL (8.6-10.3); Carbon Dioxide 24 mEq/L (23-29); Chloride 103 mEq/L (98-107); Glucose 105 mg/dL (70-105); Osmolality,Calculated 283 (280-300); Potassium 4.2 mEq/L (3.5-5.1); Sodium 135 mEq/L (136-145); eGFR For African Americans > 60 (> 60); eGFR For Non-African Americans 54 (> 60)
[2021-03-13] MEDS: cefTRIAXone 1,000 MG in 0.9 % Sodium Chloride Mini Bag 100 ML IVPB SCH (09:16)
[2021-03-13] MEDS: Carbidopa/Levodopa 25/100 TABLET PO SCH ×4 (09:16→20:43)
[2021-03-13] MEDS: lisinopriL 5 MG TABLET PO SCH (09:16)
[2021-03-14] MEDS: Carbidopa/Levodopa 25/100 TABLET PO SCH ×4 (08:16→20:08)
[2021-03-14] MEDS: lisinopriL 5 MG TABLET PO SCH (08:16)
[2021-03-14] MEDS: cefTRIAXone 1,000 MG in 0.9 % Sodium Chloride Mini Bag 100 ML IVPB SCH (08:17)
[2021-03-14] MEDS: Cefdinir 300 MG CAPSULE PO SCH ×2 (11:51→20:08)
[2021-03-14] MEDS: *HR* HYDROcodone/Acet 5/325 mg TABLET PO PRN (11:53)
[2021-03-14 20:59] LABS: Influenza A PCR Negative (Negative); Influenza B PCR Negative (Negative); Resp. Syncytial Virus PCR Negative (Negative)
[2021-03-14 21:07] LABS: SARS-CoV-2 by PCR (In House) Negative (Negative)
[2021-03-15 03:36] VITALS: TEMP 97.4
[2021-03-15 07:24] VITALS: BP 168/80; PULSE 75; O2SAT 92
[2021-03-15] MEDS: lisinopriL 5 MG TABLET PO SCH (08:45)
[2021-03-15] MEDS: Carbidopa/Levodopa 25/100 TABLET PO SCH ×2 (08:46→12:14)
[2021-03-15] MEDS: Cefdinir 300 MG CAPSULE PO SCH (08:46)
== END 2021-03-15 12:20 | DRG 57 ==
LOC: 3ANU 14:05 → EMEROOARM 14:05 → SUATTDRO 22:35 → 3ANU 23:44
PROVIDERS: ADMIT Internal Medicine; ATTEND Internal Medicine

== ENCOUNTER 2022-01-11 14:40 | Inpatient (IN) ==
[2022-01-11] MEDS ORDERED: CefTRIAXone (wt based) IVPB ONE (18:19)
[2022-01-11] MEDS ORDERED: Nystatin POWDER 30 GM BOTTLE TP ONE (18:20)
[2022-01-11] MEDS ORDERED: cefTRIAXone 2,000 MG in 0.9 % Sodium Chloride Mini Bag 100 ML IVPB ONE (18:25)
[2022-01-11] MEDS ORDERED: 0.9 % Sodium Chloride 1,000 ML IVC ONE (19:04)
[2022-01-11 19:37] LABS: Eosinophils % 0.1 %; Mean Corpuscular HGB Conc 33.7 g/dL (31.6-35.5); Mean Corpuscular Hemoglobin 31.8 pg (28.0-33.3); Monocytes % 8.5 %; Red Cell Distribution Width 12.3 % (11.5-14.5)
[2022-01-11 19:39] LABS: Basophils % 0.3 %; Hemoglobin 15.5 g/dL (11.5-15.4); Immature Granulocytes % 0.2 % (0-4); Immature Platelets 18.1 % (1.1-6.1); Lymphocytes # 1.6 K/mcL (0.6-4.6); Lymphocytes % 11.4 %; Mean Corpuscular Volume 94.3 fL (83.0-100.0); Mean Platelet Volume 12.5 fL (9.4-12.4); Monocytes # 1.2 K/mcL (0.0-1.3); Neutrophils # 10.8 K/mcL (1.6-8.9); Red Blood Count 4.88 M/mcL (3.82-4.97); Segmented Neutrophils % 79.5 %; White Blood Count 13.6 K/mcL (4.3-11.1)
[2022-01-11 19:47] LABS: INR 1.1; Prothrombin Time 11.9 Seconds (9.4-12.1)
[2022-01-11 20:05] LABS: Platelet Count 93 K/mcL (140-400)
[2022-01-11] MEDS ORDERED: Acetaminophen 325 MG TABLET PO ONE (20:05)
[2022-01-11 20:15] LABS: Alanine Aminotransferase 4 Units/L (7-52); Albumin 4.2 g/dL (3.5-5.7); Albumin/Globulin Ratio 1.3 (1.1-2.2); Alkaline Phosphatase 80 Units/L (34-104); Aspartate Amino Transferase 82 Units/L (13-39); BUN/Creatinine Ratio 25 (6-26); Bilirubin,Direct 0.1 mg/dL (0.0-0.2); Bilirubin,Indirect 0.6 mg/dL (0.0-1.0); Bilirubin,Total 0.7 mg/dL (0.3-1.0); Blood Urea Nitrogen 23 mg/dL (8-23); Calcium 9.9 mg/dL (8.6-10.3); Carbon Dioxide 25 mEq/L (23-29); Chloride 106 mEq/L (98-107); Ethanol < 10 mg/dL (Less than 10); Globulin 3.3 g/dL (2.4-3.5); Glucose 95 mg/dL (70-105); Osmolality,Calculated 295 (280-300); Potassium 4.1 mEq/L (3.5-5.1); Sodium 141 mEq/L (136-145); Total Protein 7.5 g/dL (6.4-8.9); Troponin I 5.61 ng/mL (< 0.04)
[2022-01-11] MEDS ORDERED: Aspirin 325 MG TABLET PO ONE (20:17)
[2022-01-11] MEDS ORDERED: *HR* Heparin 5,000 UNIT/ML VIAL IVP ONE (20:21)
[2022-01-11] MEDS: Heparin 25,000UNIT/250ML 1/2NS 25,000 UNIT/250 ML IV.SOLN IVC SCH (20:40)
[2022-01-11 21:02] LABS: INR 1.1; Prothrombin Time 12.4 Seconds (9.4-12.1)
[2022-01-11 21:06] LABS: Heparin anti-factor XA UFH 0.06 IU/mL (0.30-0.70)
[2022-01-11] MEDS ORDERED: *HR* Heparin 5,000 UNIT/ML VIAL IVP PRN ×2 (21:10)
[2022-01-11 21:42] LABS: Bacteria,Urine Moderate per hpf (None-Few); Bilirubin,Urine Negative (Negative); Blood,Urine Large (Negative); Clarity,Urine Turbid (Clear); Color,Urine Yellow (Yellow); Glucose,Urine (UA) Normal (Normal); Ketones,Urine 10 mg/dL (Negative); Leukocyte Esterase,Urine Large (Negative); Mucus,Urine Few per lpf (None-Few); Nitrite,Urine Positive (Negative); Protein,Urine 70 mg/dL (Neg-Trace); Renal Epithelial Cells,Urine Few per hpf (None-Few); Specific Gravity,Urine > 1.030 (1.010-1.025); Squamous Epithelial Cell,Urine Moderate per hpf (None-Few); Transitional Epi Cells,Urine Few per hpf (None-Few); Urobilinogen,Urine Normal (Normal); WBC,Urine 50-100 per hpf (0-3)
[2022-01-11 21:51] LABS: Amphetamine Screen,Urine Negative ng/mL (Cutoff=1000); Barbiturate Screen,Urine Negative ng/mL (Cutoff=200); Benzodiazepines Screen,Urine Negative ng/mL (Cutoff=200); Cannabinoid Screen,Urine Negative ng/mL (Cutoff = 50); Cocaine Screen,Urine Negative ng/mL (Cutoff= 300); Opiate Screen,Urine Negative ng/mL (Cutoff=300); Phencyclidine Screen,Urine Negative ng/mL (Cutoff=25)
[2022-01-11 21:57] LABS: Creatine Kinase 4305 Units/L (30-223)
[2022-01-11] MEDS ORDERED: Naloxone 0.4 MG/ML INJ IVP PRN (22:03)
[2022-01-11] MEDS ORDERED: Ondansetron ODT 4 MG TAB.RAPDIS SL PRN (22:03)
[2022-01-11] MEDS ORDERED: Melatonin 3 MG TABLET PO PRN (22:03)
[2022-01-11 22:14] LABS: Influenza A PCR Negative (Negative); Influenza B PCR Negative (Negative); Resp. Syncytial Virus PCR Negative (Negative)
[2022-01-11 22:15] LABS: SARS-CoV-2 by PCR (In House) Negative (Negative)
[2022-01-11 22:36] LABS: Hemoglobin 13.9 g/dL (11.5-15.4); Mean Corpuscular HGB Conc 33.9 g/dL (31.6-35.5); Mean Corpuscular Hemoglobin 31.6 pg (28.0-33.3); Mean Corpuscular Volume 93.2 fL (83.0-100.0); Mean Platelet Volume 12.6 fL (9.4-12.4); Platelet Count 155 K/mcL (140-400); Red Cell Distribution Width 12.4 % (11.5-14.5); White Blood Count 12.4 K/mcL (4.3-11.1)
[2022-01-11 23:17] LABS: Troponin I 6.59 ng/mL (< 0.04)
[2022-01-11] MEDS: Ringers Solution, Lactated 1,000 ML IVC SCH (23:27)
[2022-01-12] MEDS: Carbidopa/Levodopa 25/100 TABLET PO SCH ×5 (00:15→20:41)
[2022-01-12 03:39] LABS: Basophils % 0.3 %; Eosinophils # 0.1 K/mcL (0.0-0.6); Eosinophils % 1.1 %; Hematocrit 36.5 % (35.3-44.9); Hemoglobin 12.1 g/dL (11.5-15.4); Immature Granulocytes % 0.2 % (0-4); Lymphocytes # 1.9 K/mcL (0.6-4.6); Lymphocytes % 20.9 %; Mean Corpuscular HGB Conc 33.2 g/dL (31.6-35.5); Mean Corpuscular Volume 93.6 fL (83.0-100.0); Monocytes # 0.9 K/mcL (0.0-1.3); Monocytes % 9.9 %; Platelet Count 120 K/mcL (140-400); Red Cell Distribution Width 12.6 % (11.5-14.5); Segmented Neutrophils % 67.6 %; White Blood Count 8.9 K/mcL (4.3-11.1)
[2022-01-12] MEDS: Ringers Solution, Lactated 1,000 ML IVC SCH (03:44)
[2022-01-12 04:08] LABS: Calcium 8.1 mg/dL (8.6-10.3); Potassium 3.7 mEq/L (3.5-5.1)
[2022-01-12 04:32] LABS: Troponin I 5.54 ng/mL (< 0.04)
[2022-01-12] MEDS ORDERED: cefTRIAXone 1,000 MG in 0.9 % Sodium Chloride Mini Bag 100 ML IVPB SCH (09:00)
[2022-01-12] MEDS ORDERED: Carbidopa/Levodopa 25/100 TABLET PO SCH (09:00)
[2022-01-12] MEDS: Aspirin 81 MG TAB.CHEW PO SCH (10:26)
[2022-01-12] MEDS: Metoprolol XL (24 HR) Succ 25 MG TAB.ER.24H PO SCH (11:53)
[2022-01-12] MEDS: Acetaminophen 325 MG TABLET PO PRN (14:15)
[2022-01-12] MEDS: Heparin 25,000UNIT/250ML 1/2NS 25,000 UNIT/250 ML IV.SOLN IVC SCH (23:28)
[2022-01-13 05:07] LABS: Basophils % 0.5 %; Eosinophils # 0.2 K/mcL (0.0-0.6); Eosinophils % 3.3 %; Hematocrit 40.1 % (35.3-44.9); Hemoglobin 13.2 g/dL (11.5-15.4); Immature Granulocytes % 0.2 % (0-4); Lymphocytes # 1.8 K/mcL (0.6-4.6); Lymphocytes % 27.6 %; Mean Corpuscular HGB Conc 32.9 g/dL (31.6-35.5); Mean Corpuscular Hemoglobin 31.1 pg (28.0-33.3); Mean Corpuscular Volume 94.4 fL (83.0-100.0); Mean Platelet Volume 12.5 fL (9.4-12.4); Monocytes # 0.7 K/mcL (0.0-1.3); Monocytes % 9.9 %; Neutrophils # 3.9 K/mcL (1.6-8.9); Platelet Count 109 K/mcL (140-400); Red Blood Count 4.25 M/mcL (3.82-4.97); Red Cell Distribution Width 12.5 % (11.5-14.5); Segmented Neutrophils % 58.5 %; White Blood Count 6.6 K/mcL (4.3-11.1)
[2022-01-13 05:29] LABS: Calcium 8.8 mg/dL (8.6-10.3); Magnesium 1.9 mg/dL (1.6-2.6); Phosphorous 3.5 mg/dL (2.7-4.5); Potassium 3.9 mEq/L (3.5-5.1)
[2022-01-13] MEDS: Metoprolol XL (24 HR) Succ 25 MG TAB.ER.24H PO SCH (09:14)
[2022-01-13] MEDS: Spironolactone 12.5 MG TABLET PO SCH (09:14)
[2022-01-13] MEDS: lisinopriL 5 MG TABLET PO SCH (09:14)
[2022-01-13] MEDS: Aspirin 81 MG TAB.CHEW PO SCH (09:14)
[2022-01-13] MEDS: Cefdinir 300 MG CAPSULE PO SCH ×2 (09:15→21:25)
[2022-01-13] MEDS: Carbidopa/Levodopa 25/100 TABLET PO SCH ×4 (09:15→21:25)
[2022-01-13] MEDS: Heparin 25,000UNIT/250ML 1/2NS 25,000 UNIT/250 ML IV.SOLN IVC SCH (21:29)
[2022-01-14 03:47] LABS: Basophils % 0.3 %; Eosinophils # 0.2 K/mcL (0.0-0.6); Eosinophils % 3.5 %; Hematocrit 38.9 % (35.3-44.9); Hemoglobin 12.9 g/dL (11.5-15.4); Immature Granulocytes % 0.3 % (0-4); Lymphocytes # 1.7 K/mcL (0.6-4.6); Lymphocytes % 27.8 %; Mean Corpuscular HGB Conc 33.2 g/dL (31.6-35.5); Mean Corpuscular Volume 93.5 fL (83.0-100.0); Mean Platelet Volume 12.7 fL (9.4-12.4); Monocytes # 0.6 K/mcL (0.0-1.3); Monocytes % 9.7 %; Neutrophils # 3.6 K/mcL (1.6-8.9); Platelet Count 108 K/mcL (140-400); Red Blood Count 4.16 M/mcL (3.82-4.97); Red Cell Distribution Width 12.3 % (11.5-14.5); Segmented Neutrophils % 58.4 %; White Blood Count 6.1 K/mcL (4.3-11.1)
[2022-01-14 04:06] LABS: Magnesium 1.9 mg/dL (1.6-2.6); Phosphorous 3.8 mg/dL (2.7-4.5)
[2022-01-14] MEDS: *HR* Heparin 5,000 UNIT/ML VIAL SQ SCH ×2 (05:00→16:51)
[2022-01-14] MEDS: lisinopriL 5 MG TABLET PO SCH (09:03)
[2022-01-14] MEDS: Spironolactone 12.5 MG TABLET PO SCH (09:03)
[2022-01-14] MEDS: Carbidopa/Levodopa 25/100 TABLET PO SCH ×4 (09:03→21:52)
[2022-01-14] MEDS: Cefdinir 300 MG CAPSULE PO SCH ×2 (09:03→21:52)
[2022-01-14] MEDS: Aspirin 81 MG TAB.CHEW PO SCH (09:03)
[2022-01-14] MEDS: Metoprolol XL (24 HR) Succ 25 MG TAB.ER.24H PO SCH (09:03)
[2022-01-14 10:22] LABS: Calcium 9.1 mg/dL (8.6-10.3); Potassium 3.9 mEq/L (3.5-5.1)
[2022-01-14] MEDS ORDERED: *HR* Midazolam HCl 2 MG/2 ML VIAL ONE (13:44)
[2022-01-14] MEDS ORDERED: Iopamidol - 370 200 ML INFUS..BTL ONE (13:44)
[2022-01-14] MEDS ORDERED: 0.9 % Sodium Chloride 1,000 ML ONE (13:44)
[2022-01-14] MEDS ORDERED: *HR* FentaNYL (PF) 100 MCG/2 ML VIAL ONE (13:44)
[2022-01-14] MEDS ORDERED: *HR* Heparin 10,000 UNIT/10 ML VIAL ONE (13:44)
[2022-01-14] MEDS ORDERED: Heparin 1,000 UNITS/500 mL 500 ML ONE (13:44)
[2022-01-14] MEDS ORDERED: Nitroglycerin 1,000 MCG/5 ML VIAL IV ONE (13:44)
[2022-01-14] MEDS: Acetaminophen 325 MG TABLET PO PRN (21:51)
[2022-01-15 03:02] LABS: Basophils % 0.3 %; Eosinophils # 0.2 K/mcL (0.0-0.6); Eosinophils % 2.8 %; Hematocrit 37.7 % (35.3-44.9); Hemoglobin 12.8 g/dL (11.5-15.4); Immature Granulocytes % 0.2 % (0-4); Lymphocytes # 1.6 K/mcL (0.6-4.6); Lymphocytes % 24.7 %; Mean Corpuscular Hemoglobin 31.8 pg (28.0-33.3); Mean Corpuscular Volume 93.8 fL (83.0-100.0); Mean Platelet Volume 12.7 fL (9.4-12.4); Monocytes # 0.5 K/mcL (0.0-1.3); Monocytes % 8.3 %; Platelet Count 101 K/mcL (140-400); Red Blood Count 4.02 M/mcL (3.82-4.97); Red Cell Distribution Width 12.2 % (11.5-14.5); Segmented Neutrophils % 63.7 %; White Blood Count 6.4 K/mcL (4.3-11.1)
[2022-01-15 03:19] LABS: Calcium 8.7 mg/dL (8.6-10.3); Phosphorous 4.2 mg/dL (2.7-4.5); Potassium 3.8 mEq/L (3.5-5.1)
[2022-01-15] MEDS: *HR* Heparin 5,000 UNIT/ML VIAL SQ SCH ×2 (05:15→17:43)
[2022-01-15] MEDS: Acetaminophen 325 MG TABLET PO PRN (05:16)
[2022-01-15] MEDS: Carbidopa/Levodopa 25/100 TABLET PO SCH ×4 (10:20→20:08)
[2022-01-15] MEDS: Spironolactone 12.5 MG TABLET PO SCH (10:20)
[2022-01-15] MEDS: Metoprolol XL (24 HR) Succ 25 MG TAB.ER.24H PO SCH (10:20)
[2022-01-15] MEDS: Cefdinir 300 MG CAPSULE PO SCH ×2 (10:20→20:08)
[2022-01-15] MEDS: Aspirin 81 MG TAB.CHEW PO SCH (10:20)
[2022-01-15] MEDS: lisinopriL 5 MG TABLET PO SCH (10:20)
[2022-01-16] MEDS: Acetaminophen 325 MG TABLET PO PRN (03:06)
[2022-01-16] MEDS: *HR* Heparin 5,000 UNIT/ML VIAL SQ SCH (05:43)
[2022-01-16] MEDS: Cefdinir 300 MG CAPSULE PO SCH (09:01)
[2022-01-16] MEDS: Aspirin 81 MG TAB.CHEW PO SCH (09:02)
[2022-01-16] MEDS: Metoprolol XL (24 HR) Succ 25 MG TAB.ER.24H PO SCH (09:02)
[2022-01-16] MEDS: lisinopriL 5 MG TABLET PO SCH (09:02)
[2022-01-16] MEDS: Carbidopa/Levodopa 25/100 TABLET PO SCH ×2 (09:02→13:07)
[2022-01-16] MEDS: Spironolactone 12.5 MG TABLET PO SCH (09:02)
[2022-01-16 12:12] VITALS: BP 144/62; PULSE 68; TEMP 97.2; O2SAT 96
[2022-01-16 13:28] LABS: Influenza A PCR Negative (Negative); Influenza B PCR Negative (Negative); Resp. Syncytial Virus PCR Negative (Negative)
[2022-01-16 13:57] LABS: SARS-CoV-2 by PCR (In House) Negative (Negative)
[2022-01-17] MEDS ORDERED: Metoprolol XL (24 HR) Succ 25 MG TAB.ER.24H PO SCH (09:00)
== END 2022-01-16 17:25 | DRG 247 ==
LOC: EMEROOARM 14:40 → 2NENU 14:40 → SUATTDRO 21:13 → 2NENU 21:59
PROVIDERS: ADMIT Student in an Organized Health Care Education/Training Program; ATTEND Internal Medicine